=== PATIENT | male | born 1945 | race African-American/Black ===

== ENCOUNTER 2019-04-01 19:25 | Emergency (ER) | payer MEDICARE, OTHER ==
[~2019-04-01] VITALS: Ht 172.7 cm; Wt 56.0 kg
[~2019-04-01 19:25] MED LIST: ACET325T9 PO; AMLO10TA4 PO; ATOR10TA PO; BUPR150T15 PO; CARV12.5 PO; CEPH500T PO; DICL100G18 TP; FLUT16SP2 NS; GABA300C18 PO; METR500T PO; MIRT15TA PO; MORP-15 PO; MORP30TA83 PO; MYCO360T PO; OMEP20CA5 PO; OXYC15TA PO; OXYC1TAB19 PO; PANT20TA2 PO; SENN8.6T99 PO; TACR1CAP4 PO; WARF3TAB50 PO; WARF3TAB54 PO
[2019-04-01] MEDS ORDERED: OXYMETAZOLINE 0.05% NASAL SPRAY 30ML BOTTLE. NS ONE (20:15)
--- NOTE | 2019-04-01 20:15 | PHYS DOC ---
Past Medical History Past Medical History: High Cholesterol, Hypertension, Renal Disease, Renal Failure Additional Past Medical Histor: LOWER EXTREMITY ARTERIAL CLOT 2014, LEFT DIALYSIS FISTULA Past Surgical History: Pacemaker Additional Past Surgical Histo: KIDNEY TRANSPLANT, LOWER EXTREMITY STENT PLACEMENT R LEG 2014, Right BKA Alcohol Use: None Drug Use: None Adult General Chief Complaint Chief Complaint: NOSEBLEED HPI HPI Patient is a 74 year old with history of hypertension, dysrhythmia, chronic renal failure on dialysis,currently on Eliquis who presents EMS with complaining of nose bleeding. Patient complaining of nasal bleeding that started about 3 hours ago without injury or history of the same problem or other bleeding. Patient denies fever and chills, dizziness, chest pain and shortness of breath. Bleeding was stopped at arrival of patient to ER. Review of Systems Review of Systems Constitutional: Denies fever or chills [] Eyes: Denies change in visual acuity, redness, or eye pain [] HENT: Denies nasal congestion or sore throat [] Respiratory: Denies cough or shortness of breath [] Cardiovascular: No additional information not addressed in HPI [] GI: Denies abdominal pain, nausea, vomiting, bloody stools or diarrhea [] : Denies dysuria or hematuria [] Musculoskeletal: Denies back pain or joint pain [] Integument: Denies rash or skin lesions [] Neurologic: Denies headache, focal weakness or sensory changes [] Endocrine: Denies polyuria or polydipsia [] All other systems were reviewed and found to be within normal limits, except as documented in this note. Current Medications Current Medications Current Medications Medications (Trade) Dose Ordered Sig/Danilo Start Time Stop Time Status Last Admin Dose Admin Oxymetazoline HCl (Afrin) 2 spray 1X ONCE 04/01/19 20:15 04/01/19 20:16 DC 04/01/19 21:48 2 SPRAY Allergies Allergies Allergies Coded Allergies Type Severity Reaction Last Updated Verified cefuroxime Allergy Intermediate Tolerates Zosyn, Augmentin 01/31/14 Yes diclofenac Allergy Intermediate 07/05/15 Yes midazolam Adverse Reaction Intermediate Anxiety, paradoxical reaction 01/22/14 01/24/14 Yes Physical Exam Physical Exam Constitutional: Well developed, well nourished,mild distress, non-toxic appearance. [] HENT: Normocephalic, atraumatic, bilateral external ears normal, oropharynx moist, no oral exudates, mild bleeding from right nostril. [] Eyes: PERRLA, EOMI, conjunctiva normal, no discharge. [] Neck: Normal range of motion, no tenderness, supple, no stridor. [] Cardiovascular:Heart rate regular rhythm, no murmur [] Lungs & Thorax: Bilateral breath sounds clear to auscultation [] Extremities: No tenderness, no cyanosis, no clubbing, right below-knee amputation. Neurologic: Alert and oriented X 3, normal motor function, normal sensory function, no focal deficits noted. [] Psychologic: Affect normal, judgement normal, mood normal. [] Current Patient Data Vital Signs Vital Signs Date Time Temp Pulse Resp B/P (MAP) Pulse Ox O2 Delivery O2 Flow Rate FiO2 04/01/19 21:00 108 16 98 04/01/19 19:40 98.6 140/63 (88) Room Air 98.6 Lab Values Laboratory Tests Test 04/01/19 20:00 White Blood Count 7.9 x10^3/uL (4.0-11.0) Red Blood Count 2.76 x10^6/uL (4.30-5.70) L Hemoglobin 8.7 g/dL (13.0-17.5) L Hematocrit 26.1 % (39.0-53.0) L Mean Corpuscular Volume 95 fL (79-100) Mean Corpuscular Hemoglobin 32 pg (25-35) Mean Corpuscular Hemoglobin Concent 33 g/dL (31-37) Red Cell Distribution Width 15.9 % (11.5-14.5) H Platelet Count 219 x10^3/uL (140-400) Neutrophils (%) (Auto) 63 % (31-73) Lymphocytes (%) (Auto) 22 % (24-48) L Monocytes (%) (Auto) 10 % (0-9) H Eosinophils (%) (Auto) 5 % (0-3) H Basophils (%) (Auto) 1 % (0-3) Neutrophils # (Auto) 5.0 x10^3/uL (1.8-7.7) Lymphocytes # (Auto) 1.7 x10^3/uL (1.0-4.8) Monocytes # (Auto) 0.8 x10^3/uL (0.0-1.1) Eosinophils # (Auto) 0.4 x10^3/uL (0.0-0.7) Basophils # (Auto) 0.1 x10^3/uL (0.0-0.2) Prothrombin Time 15.1 SEC (11.7-14.0) H Prothrombin Time INR 1.2 (0.8-1.1) H Activated Partial Thromboplast Time 43 SEC (24-38) H Sodium Level 140 mmol/L (136-145) Potassium Level 4.5 mmol/L (3.5-5.1) Chloride Level 95 mmol/L (98-107) L Carbon Dioxide Level 39 mmol/L (21-32) H Anion Gap 6 (6-14) Blood Urea Nitrogen 26 mg/dL (8-26) Creatinine 3.8 mg/dL (0.7-1.3) H Estimated GFR (Cockcroft-Gault) 18.9 BUN/Creatinine Ratio 7 (6-20) Glucose Level 112 mg/dL (70-99) H Calcium Level 8.6 mg/dL (8.5-10.1) Total Bilirubin 0.4 mg/dL (0.2-1.0) Aspartate Amino Transferase (AST) 20 U/L (15-37) Alanine Aminotransferase (ALT) 12 U/L (16-63) L Alkaline Phosphatase 107 U/L (46-116) Total Protein 6.7 g/dL (6.4-8.2) Albumin 2.8 g/dL (3.4-5.0) L Albumin/Globulin Ratio 0.7 (1.0-1.7) L Laboratory Tests 04/01/19 20:00 Laboratory Tests 04/01/19 20:00 EKG EKG [] Radiology/Procedures Radiology/Procedures [] Course & Med Decision Making Course & Med Decision Making Pertinent Labs reviewed. (See chart for details) Evaluation of patient in ER showed 74-year-old male patient with history of chronic renal failure on hemodialysis and currently on Eliquis presented with complaining of epistaxis for 2 hours. Patient had bleeding of right nare that was stopped after insertion of rapid Rhino. Labs did not show acute changes. Patient was advised to follow with his primary care physician or ENT family and consumer sciences professor or emergency room for the moving of the packing in 3 days. Dragon Disclaimer Dragon Disclaimer This electronic medical record was generated, in whole or in part, using a voice recognition dictation system. Departure Departure Impression: Primary Impression: Epistaxis Disposition: HOME, SELF-CARE (prison at [facility]) Condition: IMPROVED Referrals: HAILEE RICHARD (PCP) Patient Instructions: Nosebleed Additional Instructions: Follow-up with your primary care physician or ENT or ER in 2 days for removal of one of the nose packing Return to ER if not getting better Nose Bleed Procedure Nose Bleed Procedure Indication: Epistaxis Procedure: The patient was positioned appropriately and the nares were cleared as well as possible. The bleeding right nares was stopped with insertion of rapid Rhino. Hemostasis was obtained. The patient tolerated the procedure well. Complications: none. ELIJAH DIEGO MD Apr 01, 2019 20:15
[2019-04-01 20:17] LABS: BASO # 0.1 x10^3/uL (0.0-0.2); BASO % 1 % (0-3); EOS # 0.4 x10^3/uL (0.0-0.7); EOS % 5 % (0-3); HEMATOCRIT 26.1 % (39.0-53.0); HEMOGLOBIN 8.7 g/dL (13.0-17.5); LYMPH # 1.7 x10^3/uL (1.0-4.8); LYMPH % 22 % (24-48); MEAN CORPUSCULAR HEMOGLOBIN 32 pg (25-35); MEAN CORPUSCULAR HGB CONC 33 g/dL (31-37); MEAN CORPUSCULAR VOLUME 95 fL (79-100); MONO # 0.8 x10^3/uL (0.0-1.1); MONO % 10 % (0-9); NEUT % 63 % (31-73); PLATELET COUNT 219 x10^3/uL (140-400); RED BLOOD COUNT 2.76 x10^6/uL (4.30-5.70); RED CELL DISTRIBUTION WIDTH 15.9 % (11.5-14.5); WHITE BLOOD COUNT 7.9 x10^3/uL (4.0-11.0)
[2019-04-01 20:23] LABS: CALCIUM 8.6 mg/dL (8.5-10.1); CREATININE 3.8 mg/dL (0.7-1.3); GFR 18.9; POTASSIUM 4.5 mmol/L (3.5-5.1)
[2019-04-01 20:24] LABS: PROTHROMBIN TIME PATIENT 15.1 SEC (11.7-14.0)
[2019-04-01 20:30] LABS: ALBUMIN 2.8 g/dL (3.4-5.0); ALBUMIN/GLOBULIN RATIO 0.7 (1.0-1.7); TOTAL BILIRUBIN 0.4 mg/dL (0.2-1.0); TOTAL PROTEIN 6.7 g/dL (6.4-8.2)
[2019-04-01 23:00] VITALS: BP 163/71
== END 2019-04-01 23:10 | disposition home or self-care (01) ==
LOC: ER 19:25
DX: R04.0 Epistaxis (principal); I12.9 Hypertensive chronic kidney disease with stage 1 through stage 4 chronic kidney disease, or unspecified chronic kidney disease; N18.9 Chronic kidney disease, unspecified; E78.00 Pure hypercholesterolemia, unspecified; Z95.5 Presence of coronary angioplasty implant and graft; Z99.2 Dependence on renal dialysis; Z94.0 Kidney transplant status; Z88.8 Allergy status to other drugs, medicaments and biological substances
CPT/HCPCS: 30901; 36415; 80053; 85025; 85610; 85730; 99284